=== PATIENT | male | born 1945 | race Two or more races ===

== ENCOUNTER 2023-04-16 13:13 | Inpatient (IN) | payer OTHER ==
[~2023-04-16] VITALS: Ht 177.8 cm; Wt 125.5 kg
[2023-04-16] MEDS ORDERED: METOPROLOL TARTRATE 1MG/1ML-5ML VIAL IV ONE (14:00)
[2023-04-16 14:09] LABS: INR 1.15 (0.9-1.15); Partial Thromboplastin Time 28.5 SEC (24.5-34.5)
[2023-04-16] MEDS ORDERED: ADENOSINE 6 MG/2 ML INJ IV ONE (14:15)
[2023-04-16 14:25] LABS: Albumin 3.4 g/dL (3.4-5.0); BUN/Creatinine Ratio 17.1 (10.0-20.0); Potassium 4.5 mmol/L (3.5-5.1)
[2023-04-16 14:28] LABS: Bilirubin, Total 1.4 mg/dL (0.2-1.0)
[2023-04-16] MEDS ORDERED: dilTIAZem 125mg/125ml BAG KIT 125 ML IV ONE (14:30)
[2023-04-16] MEDS ORDERED: dilTIAZem 25 MG/5 ML VIAL IV ONE (14:30)
[2023-04-16] MEDS ORDERED: ASPirin 325 MG TAB PO ONE (14:30)
[2023-04-16 14:43] VITALS: PULSE 77; RESP 18; O2SAT 98
[2023-04-16 15:00] LABS: Urine Bacteria NONE SEEN /hpf (None Seen); Urine Blood Negative /uL (Negative); Urine Clarity Clear (Clear); Urine Color Yellow (Yellow); Urine Mucus FEW (None Seen); Urine Protein, UAD 1+ (Negative); Urine Specific Gravity 1.027 (1.001-1.035); Urine Urobilinogen Normal (Negative); Urine WBC <1 /hpf (0 - 3)
[2023-04-16 15:55] LABS: Basophils # (auto) 0 10 ^3/uL (0-0.2); Basophils % (auto) 0.3 % (0.0-2.0); Eosinophils # (auto) 0 10 ^3/uL (0-0.8); Eosinophils % (auto) 0.4 % (0.0-7.0); Hematocrit 42.3 % (41.0-53.0); Hemoglobin 14.3 g/dL (13.5-17.5); Lymphocytes # (auto) 0.7 10 ^3/uL (0.4-5.4); Lymphocytes % (auto) 10.8 % (10.0-50.0); Mean Corpuscular Hemoglobin 31.2 pg (28.0-32.0); Mean Corpuscular Hgb Conc. 33.7 g/dL (32.0-36.0); Mean Corpuscular Volume 92.6 fL (80.0-100.0); Monocytes # (auto) 0.5 10 ^3/uL (0-1.3); Monocytes % (auto) 8.8 % (0.0-12.0); Neutrophils # (auto) 4.9 10 ^3/uL (1.6-8.6); Neutrophils % (auto) 79.7 % (37.0-80.0); Nucleated Red Blood Cells % 0.2 %; Red Blood Cells 4.57 10^6/uL (4.5-5.90); Red Cell Distribution Width 14.4 % (11.8-14.3); White Blood Cell 6.2 10^3/uL (4.4-10.8)
[2023-04-16] MEDS ORDERED: NITROGLYCERIN 0.4 MG SL TAB SL PRN (16:00)
[2023-04-16] MEDS ORDERED: MORPHINE SULFATE INJ 2 MG/ml SYRG IV PRN (16:00)
[2023-04-16 19:25] VITALS: PULSE 90; RESP 19; O2SAT 97
[2023-04-16 20:30] LABS: Calcium 8.9 mg/dL (8.5-10.1); Potassium 4.2 mmol/L (3.5-5.1)
[2023-04-16 20:32] LABS: BUN/Creatinine Ratio 21.7 (10.0-20.0)
[2023-04-16] MEDS ORDERED: IOHEXOL 350 MG/ML 100ML IJ ONE (20:43)
[2023-04-16] MEDS: METOPROLOL TARTRATE 25 MG TAB PO SCH (21:38)
[2023-04-17] MEDS ORDERED: dilTIAZem 25 MG/5 ML VIAL IV ONE ×3 (06:00→10:15)
[2023-04-17 08:22] VITALS: PULSE 99; RESP 20; O2SAT 98
[2023-04-17 08:27] LABS: Alcohol, Urine < 3.0 mg/dL (0-10); Amphetamine Screen, Urine NEGATIVE (NEGATIVE); Barbiturate Scree,Urine NEGATIVE (NEGATIVE); Benzodiazephine Screen, Urine NEGATIVE (NEGATIVE); Cannabinoid Screen, Urine NEGATIVE (NEGATIVE); Cocaine Screen, Urine NEGATIVE (NEGATIVE); Opiate Scree,Urine NEGATIVE (NEGATIVE); Phencyclidine Screen, Urine NEGATIVE (NEGATIVE)
[2023-04-17 08:44] LABS: Potassium 4.1 mmol/L (3.5-5.1)
[2023-04-17 08:48] LABS: BUN/Creatinine Ratio 18.9 (10.0-20.0); Calcium 8.4 mg/dL (8.5-10.1)
[2023-04-17 08:58] LABS: Cholesterol 116 mg/dL (< 200); HDL Cholesterol 30 mg/dL (40-59); LDL Cholesterol 80 mg/dL (< 100); Triglycerides 93 mg/dL (< 150)
[2023-04-17] MEDS ORDERED: ADENOSINE 6 MG/2 ML INJ IV ONE ×2 (09:00→09:30)
[2023-04-17] MEDS: METOPROLOL TARTRATE 25 MG TAB PO SCH (09:42)
[2023-04-17] MEDS ORDERED: ENOXAPARIN SOD 120 MG/0.8 ML SYRINGE SC ONE (10:30)
[2023-04-17] MEDS ORDERED: dilTIAZem HCL 60 MG TAB GT SCH (12:00)
[2023-04-17] MEDS: dilTIAZem HCL 60 MG TAB PO SCH ×2 (13:39→17:50)
[2023-04-17] MEDS ORDERED: FUROSEMIDE 20 MG TAB PO SCH (15:15)
[2023-04-17 17:25] VITALS: BP 115/72; PULSE 72; RESP 16; TEMP 98.7; O2SAT 95
[2023-04-17] MEDS ORDERED: FUROSEMIDE 20 MG/2 ML VIAL IV SCH (18:52)
[2023-04-17] MEDS ORDERED: CYANOCOBALAMIN (B-12) 1000 MCG/1 ML VIAL IM ONE (19:15)
[2023-04-17] MEDS: FUROSEMIDE 20 MG/2 ML VIAL IV SCH (19:43)
[2023-04-17] MEDS: METOPROLOL SUCCINATE XL 50 MG TAB PO SCH (19:44)
[2023-04-17 20:00] VITALS: PULSE 126
[2023-04-17 22:00] VITALS: BP 115/70; PULSE 96; RESP 20; TEMP 98; O2SAT 93
[2023-04-17] MEDS ORDERED: PRAVASTATIN SODIUM 20 MG TAB PO ONE (22:00)
[2023-04-17] MEDS ORDERED: ENOXAPARIN SOD 120 MG/0.8 ML SYRINGE SC SCH (22:00)
[2023-04-18] VITALS (11 sets, daily range): BP systolic 98–133; BP diastolic 60–94; PULSE 73–137; RESP 16–82; TEMP 97.8–98.3; O2SAT 94–97
[2023-04-18] MEDS: FUROSEMIDE 20 MG/2 ML VIAL IV SCH ×2 (07:14→18:01)
[2023-04-18 07:57] LABS: Calcium 8.9 mg/dL (8.5-10.1); Potassium 3.9 mmol/L (3.5-5.1)
[2023-04-18] MEDS: APIXABAN 5 MG TAB PO SCH ×2 (09:20→21:43)
[2023-04-18] MEDS: METOPROLOL SUCCINATE XL 50 MG TAB PO SCH (09:21)
[2023-04-18] MEDS ORDERED: ASPirin 81 mg TAB PO SCH (10:00)
[2023-04-18] MEDS ORDERED: LIDOCAINE VISCOUS 2% 15ML UD PO ONE (11:00)
[2023-04-18] MEDS ORDERED: MIDAZOLAM HCL 2MG/2ML 2ml VIAL (1mg/ml) IV ONE ×2 (11:00→11:58)
[2023-04-18] MEDS ORDERED: fentaNYL CITRATE 100 MCG/2 ML VL IV ONE (11:00)
[2023-04-18] MEDS ORDERED: MIDAZOLAM HCL 2MG/2ML 2ml VIAL (1mg/ml) ONE (11:38)
[2023-04-18] MEDS ORDERED: OPTISON 3ml Vial for INJ IV ONE ×2 (11:48→11:53)
[2023-04-18] MEDS ORDERED: METOPROLOL SUCCINATE XL 50 MG TAB PO SCH (20:00)
[2023-04-18] MEDS ORDERED: ATORVASTATIN 20 MG TAB PO SCH (22:00)
[2023-04-19 05:00] VITALS: BP 124/74; PULSE 60; RESP 18; TEMP 98.2; O2SAT 92
[2023-04-19 05:00] LABS: Basophils # (auto) 0 10 ^3/uL (0-0.2); Basophils % (auto) 0.5 % (0.0-2.0); Eosinophils # (auto) 0 10 ^3/uL (0-0.8); Hematocrit 40.7 % (41.0-53.0); Hemoglobin 14.1 g/dL (13.5-17.5); Lymphocytes # (auto) 0.7 10 ^3/uL (0.4-5.4); Lymphocytes % (auto) 14.2 % (10.0-50.0); Mean Corpuscular Hgb Conc. 34.6 g/dL (32.0-36.0); Mean Corpuscular Volume 92.4 fL (80.0-100.0); Monocytes # (auto) 0.5 10 ^3/uL (0-1.3); Monocytes % (auto) 9.9 % (0.0-12.0); Neutrophils # (auto) 3.5 10 ^3/uL (1.6-8.6); Neutrophils % (auto) 74.4 % (37.0-80.0); Red Cell Distribution Width 14.3 % (11.8-14.3); White Blood Cell 4.7 10^3/uL (4.4-10.8)
[2023-04-19 05:19] LABS: Potassium 3.7 mmol/L (3.5-5.1)
[2023-04-19 05:25] LABS: Albumin 3.1 g/dL (3.4-5.0); BUN/Creatinine Ratio 22.2 (10.0-20.0); Bilirubin, Total 1.4 mg/dL (0.2-1.0); Calcium 8.5 mg/dL (8.5-10.1); Total Protein 6.8 g/dL (6.4-8.2)
[2023-04-19] MEDS: FUROSEMIDE 20 MG/2 ML VIAL IV SCH (06:47)
[2023-04-19 08:00] VITALS: PULSE 60; RESP 18; O2SAT 97
[2023-04-19] MEDS ORDERED: FURO1TAB33 PO (08:29)
[2023-04-19] MEDS ORDERED: CYAN100056 PO (08:29)
[2023-04-19] MEDS ORDERED: METO-6 PO (08:29)
[2023-04-19] MEDS ORDERED: APIX5TAB PO (08:29)
[2023-04-19] MEDS ORDERED: ATOR20TA50 PO (08:29)
[2023-04-19 09:13] VITALS: BP 132/84; PULSE 63; RESP 20; TEMP 98.1; O2SAT 95
[2023-04-19] MEDS: APIXABAN 5 MG TAB PO SCH (10:37)
[2023-04-19] MEDS: METOPROLOL SUCCINATE XL 50 MG TAB PO SCH (10:37)
[2023-04-19 13:47] VITALS: BP 125/79; PULSE 61; RESP 19; TEMP 98; O2SAT 96
[2023-04-19 14:27] VITALS: BP 132/84; PULSE 63; TEMP 36.7
== END 2023-04-19 17:30 | disposition home or self-care (01) | DRG 308 ==
LOC: ER 13:13 → TELE 16:08 → TELE-CENTR 04-17 17:29
PROVIDERS: ADMIT Internal Medicine; ATTEND Internal Medicine
PROC: 5A2204Z Restoration of Cardiac Rhythm, Single (ICD-10-PCS; principal; 2023-04-18)
PROC: B245ZZ4 Ultrasonography of Left Heart, Transesophageal (ICD-10-PCS; 2023-04-18)
DX: I48.92 Unspecified atrial flutter (principal); I50.23 Acute on chronic systolic (congestive) heart failure; I31.39 Other pericardial effusion (noninflammatory); D68.69 Other thrombophilia; I11.0 Hypertensive heart disease with heart failure; I48.91 Unspecified atrial fibrillation; I34.0 Nonrheumatic mitral (valve) insufficiency; E78.5 Hyperlipidemia, unspecified; E66.01 Morbid (severe) obesity due to excess calories; I83.11 Varicose veins of right lower extremity with inflammation; R91.1 Solitary pulmonary nodule; E11.9 Type 2 diabetes mellitus without complications; Z91.199 Patient's noncompliance with other medical treatment and regimen due to unspecified reason; Z86.16 Personal history of COVID-19; Z68.39 Body mass index [BMI] 39.0-39.9, adult
CPT/HCPCS: 36415; 70450; 71045; 71275; 80048; 80053; 80061; 80307; 81001; 82607; 83036; 83735; 83880; 84443; 84484; 85025; 85379; 85610; 85730; 93005; 93306; 93312; 93886; 93970; 96374; 96375; 99152; 99291; G0378; J0153; J2250; Q9956